=== PATIENT | male | born 1945 | race Two or more races ===

== ENCOUNTER 2017-12-28 11:06 | Inpatient (IN) | payer OTHER ==
[~2017-12-28] VITALS: Ht 170.2 cm; Wt 77.1 kg
[~2017-12-28 11:06] MED LIST: AZTREONAM IV; CLEOCIN HCL300 MG PO; GLUCOTROL10 MG PO; INTESTINEX1 CA1 PO; Imdur 30MG PO; LORazepam 1MG TAB PO; LOTRIMIN TP; Lantus 1000 U/10 ML SUBCUTANEO; METFORMIN HCL500 MG PO; PLAVIX 75MG PO; Paxil PO; VANCOCIN HCL 5 MG/ML REDILUIDO IV; Zolpidem Tartrate 10MG PO
[2018-01-04] MEDS ORDERED: CLEOCIN HCL300 MG PO (08:47)
[2018-01-04] MEDS ORDERED: CIPRO500 MG PO (08:47)
== END 2018-01-04 10:06 | disposition home or self-care (01) | DRG 603 ==
LOC: ER 11:06 → MEDJ 16:53
DX: L03.116 Cellulitis of left lower limb (principal); L02.612 Cutaneous abscess of left foot; L97.528 Non-pressure chronic ulcer of other part of left foot with other specified severity; I50.30 Unspecified diastolic (congestive) heart failure; B35.3 Tinea pedis; E11.65 Type 2 diabetes mellitus with hyperglycemia; Z79.4 Long term (current) use of insulin; Z88.0 Allergy status to penicillin; E86.0 Dehydration; B95.62 Methicillin resistant Staphylococcus aureus infection as the cause of diseases classified elsewhere; E11.621 Type 2 diabetes mellitus with foot ulcer; B95.1 Streptococcus, group B, as the cause of diseases classified elsewhere; B37.2 Candidiasis of skin and nail; I11.0 Hypertensive heart disease with heart failure; E11.628 Type 2 diabetes mellitus with other skin complications

== ENCOUNTER 2018-05-23 11:57 | Outpatient (CLI) | payer OTHER ==
[~2018-05-23 11:57] MED LIST changes: +CIPRO500 MG PO
== END 2018-05-23 12:02 | disposition home or self-care (01) ==
LOC: RAD 11:57
DX: E10.621 Type 1 diabetes mellitus with foot ulcer (principal)

== ENCOUNTER → 2018-10-30 | Emergency (ER) | payer OTHER ==
[~2018-10-30] VITALS: Ht 170.2 cm; Wt 77.1 kg
[~2018-10-30] MED LIST changes: +FORTAMET1000 MG; +LANTUS SOL100 UNIT/1
== END | disposition left against medical advice (07) ==
LOC: ER → CPU-OBS 12:27 → ER 12:27
DX: R07.89 Other chest pain (principal)

== ENCOUNTER 2019-12-02 10:44 | Outpatient (CLI) | payer OTHER | END 2019-12-02 13:00 | disposition home or self-care (01) | LOC: OFIC 805 10:44 | DX: H91.8X3 Other specified hearing loss, bilateral (principal) ==

== ENCOUNTER 2020-04-09 11:10 | Inpatient (IN) | payer OTHER ==
[~2020-04-09] VITALS: Ht 170.2 cm; Wt 68.0 kg
== END 2020-04-15 08:36 | disposition expired | DRG 300 ==
LOC: ER 11:10 → SURH 21:36
PROVIDERS: ADMIT Internal Medicine; ATTEND Internal Medicine
PROC: 02H633Z Insertion of Infusion Device into Right Atrium, Percutaneous Approach (ICD-10-PCS; 2020-04-12)
PROC: B44HZZZ Ultrasonography of Bilateral Lower Extremity Arteries (ICD-10-PCS; 2020-04-14)
PROC: 0BH17EZ Insertion of Endotracheal Airway into Trachea, Via Natural or Artificial Opening (ICD-10-PCS; principal; 2020-04-15)
DX: E11.52 Type 2 diabetes mellitus with diabetic peripheral angiopathy with gangrene (principal); I96 Gangrene, not elsewhere classified; L97.528 Non-pressure chronic ulcer of other part of left foot with other specified severity; L03.116 Cellulitis of left lower limb; N17.8 Other acute kidney failure; E11.22 Type 2 diabetes mellitus with diabetic chronic kidney disease; E11.65 Type 2 diabetes mellitus with hyperglycemia; E11.621 Type 2 diabetes mellitus with foot ulcer; N18.9 Chronic kidney disease, unspecified; B95.62 Methicillin resistant Staphylococcus aureus infection as the cause of diseases classified elsewhere; E86.0 Dehydration; H91.8X3 Other specified hearing loss, bilateral; R07.89 Other chest pain; E87.5 Hyperkalemia; Z20.828 Contact with and (suspected) exposure to other viral communicable diseases; Z79.4 Long term (current) use of insulin; Z88.0 Allergy status to penicillin